=== PATIENT | male | born 1990 | race Caucasian/White ===

== ENCOUNTER 2020-03-15 13:42 | Outpatient (REF) | payer OTHER, SELFPAY ==
[2020-03-16 13:13] LABS: COVID-19 Test Negative (Negative)
== END 2020-03-15 13:43 | disposition home or self-care (01) ==
LOC: HO.EMPCOV 13:42
PROVIDERS: Visit Provider Internal Medicine
DX: Z20.828 Contact with and (suspected) exposure to other viral communicable diseases (principal)
CPT/HCPCS: 87635; C9803

== ENCOUNTER 2020-03-22 13:47 | Outpatient (REF) | payer OTHER, SELFPAY ==
[2020-03-22 14:21] LABS: COVID-19 Test Negative (Negative)
== END 2020-03-22 13:48 | disposition home or self-care (01) ==
LOC: HO.EMPCOV 13:47
PROVIDERS: Visit Provider Internal Medicine
DX: Z20.828 Contact with and (suspected) exposure to other viral communicable diseases (principal)
CPT/HCPCS: 87635; C9803